=== PATIENT | female | born 1945 | race Caucasian/White ===

== ENCOUNTER 2017-11-29 23:14 | Inpatient (IN) | payer MEDICARE, BC ==
[~2017-11-29] VITALS: Ht 160 cm; Wt 64.7 kg
[2017-11-30] VITALS (9 sets, daily range): BP systolic 109–158; BP diastolic 50–80; PULSE 12–97; TEMP 97.7–98.6
[2017-11-30 00:25] LABS: COLLECTION METHOD CLEAN CATCH
[2017-11-30 00:26] LABS: BASO % 0.2 % (0.0-2.0); EOS % 0.1 % (0-4.0); GRAN # 8.3 (1.4-6.5); GRAN % 88.6 % (42.2-75.2); HEMATOCRIT 41.2 % (37.0-47.0); LYMPH # 0.8 (1.2-3.4); LYMPH % 8.2 % (20.0-51.0); MEAN CELL VOLUME 87 fl (80.0-100.0); MEAN CORPUSCULAR HEMOGLOBIN 29 pg (27.0-31.0); MEAN CORPUSCULAR HGB CONC 34 g/dl (33.0-37.0); MONO # 0.2 (0.1-0.6); MONO % 2.6 % (1.7-9.3); PLATELET COUNT 169 K/mm3 (130-400); RED BLOOD COUNT 4.76 M/mm3 (4.10-5.30); REDCELL DISTRIBUTION WIDTH-CV 12.8 % (11.5-14.5)
[2017-11-30 00:31] LABS: PH 5 (5-8); SQUAMOUS EPITHELIAL 0-2 /hpf; URINE APPEARANCE Clear; URINE BACTERIA Rare /hpf; URINE BILIRUBIN Negative (NEGATIVE); URINE BLOOD 2+ (NEGATIVE); URINE COLOR Yellow; URINE GLUCOSE 3+ (NEGATIVE); URINE KETONE Trace (NEGATIVE); URINE LEUKOCYTE ESTERASE 1+ (NEGATIVE); URINE NITRATE Negative (NEGATIVE); URINE PROTEIN(semi-quant) 1+ (NEGATIVE); URINE UROBILINOGEN Negative (NEGATIVE)
[2017-11-30 00:38] LABS: ALANINE AMINOTRANSFERASE 43 U/L (9-52); ALBUMIN 4.8 gm/dL (3.5-5.0); ALKALINE PHOSPHATASE 130 U/L (50-136); ANION GAP 14 mmol/L (7-16); AST,SGOT 27 U/L (15-37); BILIRUBIN,TOTAL 0.6 mg/dL (0.0-1.0); BLOOD UREA NITROGEN 23 mg/dL (7-17); C-REACTIVE PROTEIN < 0.5 mg/dL (0.0-0.9); CALCIUM 9.9 mg/dL (8.4-10.2); CARBON DIOXIDE 28 mmol/L (22-30); CHLORIDE 96 mmol/L (98-107); CREATININE, serum 1.07 mg/dL (0.52-1.25); GLUCOSE 307 mg/dL (74-106); LIPASE 137 U/L (23-300); POTASSIUM 3.4 mmol/L (3.4-5.0); SODIUM 138 mmol/L (137-145); TOTAL PROTEIN 7.8 gm/dL (6.4-8.2)
[2017-11-30 00:48] LABS: TROPONIN-I < 0.012 ng/mL (0.000-0.034)
[2017-11-30] MEDS ORDERED: AMARYL4 MG PO (03:59)
[2017-11-30] MEDS ORDERED: LIPITOR20 MG PO (03:59)
[2017-11-30] MEDS ORDERED: GLUCOPHAGE1000 MG PO (04:00)
[2017-11-30] MEDS ORDERED: DIOVAN/HCT 12.51 TA1 PO (04:01)
[2017-11-30] MEDS ORDERED: ARIMIDEX1 MG PO (04:01)
[2017-11-30] MEDS ORDERED: ASPIRIN 81M81 MG/TA2 PO (04:02)
[2017-11-30] MEDS ORDERED: VITAMIN D31000 I1 PO (04:02)
[2017-11-30] MEDS ORDERED: EPA FISH OIL1 SGL PO (04:03)
== END 2017-11-30 16:15 | disposition home or self-care (01) | DRG 687 ==
LOC: COL.ER 23:14 → SURG 11-30 02:08
PROVIDERS: Emergency Medicine; Urology
PROC: 0T788DZ Dilation of Bilateral Ureters with Intraluminal Device, Via Natural or Artificial Opening Endoscopic (ICD-10-PCS; principal; 2017-11-30 10:00)
PROC: 0TB38ZX Excision of Right Kidney Pelvis, Via Natural or Artificial Opening Endoscopic, Diagnostic (ICD-10-PCS; 2017-11-30 10:00)
PROC: BT14ZZZ Fluoroscopy of Kidneys, Ureters and Bladder (ICD-10-PCS; 2017-11-30 10:00)
DX: C65.1 Malignant neoplasm of right renal pelvis (principal); N13.30 Unspecified hydronephrosis; Z85.3 Personal history of malignant neoplasm of breast; I10 Essential (primary) hypertension; E11.9 Type 2 diabetes mellitus without complications
CPT/HCPCS: C1769; C2617; J0690; J0696; J1100; J1815; J1885; J2270; J2405; J2550; J2704; J2765; J3010; J7030; Q9967

== ENCOUNTER → 2017-12-24 | Outpatient (CLI) | payer MEDICARE, BC ==
[~2017-12-24] MED LIST: AMARYL4 MG PO; ARIMIDEX1 MG PO; ASPIRIN 81M81 MG/TA2 PO; DIOVAN/HCT 12.51 TA1 PO; EPA FISH OIL1 SGL PO; GLUCOPHAGE1000 MG PO; LIPITOR20 MG PO; VITAMIN D31000 I1 PO
== END ==
LOC: COL.RAD 08:53
DX: M99.88 Other biomechanical lesions of rib cage (principal); Z90.11 Acquired absence of right breast and nipple
CPT/HCPCS: A9503; Q9967

== ENCOUNTER → 2018-01-07 | Outpatient (CLI) | payer MEDICARE, BC ==
[2018-01-07] VITALS (11 sets, daily range): BP systolic 129–171; BP diastolic 73–96; PULSE 87–108
[~2018-01-07] VITALS: Ht 160 cm; Wt 65.3 kg
[~2018-01-07] MED LIST changes: +FORT1000TA PO; +ZYRTEC 10MG10 MG PO
== END ==
LOC: COL.RAD 12:52
DX: C79.51 Secondary malignant neoplasm of bone (principal); C65.1 Malignant neoplasm of right renal pelvis; Z85.3 Personal history of malignant neoplasm of breast; Z90.10 Acquired absence of unspecified breast and nipple
CPT/HCPCS: J3010

== ENCOUNTER 2018-02-04 09:53 | Inpatient (IN) | payer MEDICARE, BC ==
[~2018-02-04] VITALS: Ht 160 cm; Wt 66.4 kg
[2018-02-27] VITALS (10 sets, daily range): BP systolic 108–186; BP diastolic 49–85; PULSE 8–90; TEMP 97.7–98
[2018-02-27] MEDS ORDERED: XGEVA120 MG/1.7 IM (10:56)
[2018-02-27] MEDS ORDERED: FASLODEX250 MG/5 M IM (10:56)
[2018-02-27] MEDS ORDERED: MULTI VITAMINS1 TAB PO (10:57)
[2018-02-28] VITALS: BP 108/63; PULSE 68; TEMP 97.4
[2018-02-28 04:00] VITALS: BP 114/50; PULSE 72; TEMP 97.6
[2018-02-28 07:15] LABS: BASO % 0.1 % (0.0-2.0); GRAN # 8.4 (1.4-6.5); GRAN % 83.7 % (42.2-75.2); HEMOGLOBIN 11.6 g/dl (12.5-16.0); LYMPH % 9.9 % (20.0-51.0); MEAN CELL VOLUME 87 fl (80.0-100.0); MEAN CORPUSCULAR HEMOGLOBIN 29 pg (27.0-31.0); MEAN CORPUSCULAR HGB CONC 34 g/dl (33.0-37.0); MEAN PLATELET VOLUME 10.9 fl (7.4-10.4); MONO # 0.6 (0.1-0.6); MONO % 6.1 % (1.7-9.3); PLATELET COUNT 160 K/mm3 (130-400); RED BLOOD COUNT 3.95 M/mm3 (4.10-5.30); REDCELL DISTRIBUTION WIDTH-CV 13.2 % (11.5-14.5)
[2018-02-28 07:18] LABS: HEMATOCRIT 34.5 % (37.0-47.0)
[2018-02-28 07:28] LABS: CALCIUM 7.8 mg/dL (8.4-10.2); CREATININE, serum 1.17 mg/dL (0.52-1.25); MAGNESIUM 1.5 mg/dL (1.6-2.3); PHOSPHOROUS 3.1 mg/dL (2.5-4.5); POTASSIUM 4.1 mmol/L (3.4-5.0)
[2018-02-28 08:54] VITALS: BP 125/63; PULSE 76; TEMP 97.6
[2018-02-28 12:01] VITALS: BP 112/33; PULSE 71; TEMP 98.4
[2018-02-28 15:41] VITALS: BP 117/54; PULSE 65; TEMP 98.3
[2018-02-28 19:31] VITALS: BP 133/99; PULSE 91; TEMP 98.3
[2018-03-01 00:51] VITALS: BP 130/98; PULSE 90; TEMP 98
[2018-03-01 04:43] VITALS: BP 120/68; PULSE 67; TEMP 98.4
[2018-03-01 07:33] LABS: HEMOGLOBIN 11.2 g/dl (12.5-16.0); MEAN CELL VOLUME 87 fl (80.0-100.0); MEAN CORPUSCULAR HEMOGLOBIN 29 pg (27.0-31.0); MEAN CORPUSCULAR HGB CONC 34 g/dl (33.0-37.0); MEAN PLATELET VOLUME 11.3 fl (7.4-10.4); PLATELET COUNT 140 K/mm3 (130-400); RED BLOOD COUNT 3.83 M/mm3 (4.10-5.30); REDCELL DISTRIBUTION WIDTH-CV 13.7 % (11.5-14.5)
[2018-03-01 07:48] LABS: CALCIUM 8.2 mg/dL (8.4-10.2); CREATININE, serum 1.24 mg/dL (0.52-1.25); POTASSIUM 4.3 mmol/L (3.4-5.0)
[2018-03-01 07:57] LABS: HEMATOCRIT 33.2 % (37.0-47.0)
[2018-03-01 08:55] VITALS: BP 136/52; PULSE 66; TEMP 98.3
[2018-03-01] MEDS ORDERED: LEVAQUIN 2250 MG/TAB PO (09:27)
[2018-03-01] MEDS ORDERED: PERCOCET 325 MG1 TA2 PO (09:27)
== END 2018-03-01 11:17 | disposition home or self-care (01) | DRG 657 ==
LOC: INPTSU 02-27 09:35 → SURG 02-27 11:30
PROVIDERS: Urology
PROC: 0TT64ZZ Resection of Right Ureter, Percutaneous Endoscopic Approach (ICD-10-PCS; 2018-02-27)
PROC: 07TD4ZZ Resection of Aortic Lymphatic, Percutaneous Endoscopic Approach (ICD-10-PCS; 2018-02-27)
PROC: 8E0W4CZ Robotic Assisted Procedure of Trunk Region, Percutaneous Endoscopic Approach (ICD-10-PCS; 2018-02-27)
PROC: 0TT04ZZ Resection of Right Kidney, Percutaneous Endoscopic Approach (ICD-10-PCS; principal; 2018-02-27 11:30)
DX: C65.1 Malignant neoplasm of right renal pelvis (principal); C79.51 Secondary malignant neoplasm of bone; E11.9 Type 2 diabetes mellitus without complications; E78.5 Hyperlipidemia, unspecified; I10 Essential (primary) hypertension; Z85.3 Personal history of malignant neoplasm of breast; Z92.21 Personal history of antineoplastic chemotherapy
CPT/HCPCS: A4314; A9284; C1713; J0690; J1100; J1815; J2250; J2405; J2704; J2795; J3010; J7030; J7050; J7120

== ENCOUNTER → 2018-03-07 | Outpatient (CLI) | payer MEDICARE, BC ==
[~2018-03-07] MED LIST changes: +FASLODEX250 MG/5 M IM; +LEVAQUIN 2250 MG/TAB PO; +MULTI VITAMINS1 TAB PO; +PERCOCET 325 MG1 TA2 PO; +XGEVA120 MG/1.7 IM
== END ==
LOC: COL.RAD 08:34
DX: C65.1 Malignant neoplasm of right renal pelvis (principal); R32 Unspecified urinary incontinence; Z98.890 Other specified postprocedural states; Z96.0 Presence of urogenital implants
CPT/HCPCS: Q9967

== ENCOUNTER → 2018-06-17 | Outpatient (CLI) | payer MEDICARE, BC | LOC: COL.RAD 08:54 | DX: C50.411 Malignant neoplasm of upper-outer quadrant of right female breast (principal); M89.9 Disorder of bone, unspecified; Z98.890 Other specified postprocedural states; Z85.53 Personal history of malignant neoplasm of renal pelvis; Z90.11 Acquired absence of right breast and nipple; Z90.5 Acquired absence of kidney | CPT/HCPCS: A9503; Q9967 ==

== ENCOUNTER 2018-06-21 06:29 | Day surgery (SDC) | payer MEDICARE, BC ==
[~2018-06-21] VITALS: Ht 160 cm; Wt 69.1 kg
[2018-06-21 07:17] VITALS: BP 171/71; PULSE 79; TEMP 97.9
[2018-06-21] MEDS ORDERED: IBRANCE125 MG PO (07:30)
[2018-06-21] MEDS ORDERED: ASPIRIN E.C. 8181 MG PO (07:31)
[2018-06-21] MEDS ORDERED: ZYRTEC 10MG10 MG PO (07:32)
[2018-06-21] MEDS ORDERED: DIOVAN/HCT 12.51 TA1 PO (07:33)
[2018-06-21] MEDS ORDERED: FORT1000TA PO (07:33)
[2018-06-21] MEDS ORDERED: XGEVA120 MG/1.7 INJ (07:34)
[2018-06-21] MEDS ORDERED: FASLODEX250 MG/5 M IM (07:35)
[2018-06-21 09:55] VITALS: BP 146/70; PULSE 93; TEMP 97.3
[2018-06-21 10:10] VITALS: BP 137/60; PULSE 81
[2018-06-21] MEDS ORDERED: PYRIDIUM 100MG100 MG PO (10:16)
[2018-06-21] MEDS ORDERED: SENNA8.6 MG PO (10:16)
[2018-06-21] MEDS ORDERED: LEVAQUIN 5500 MG/TA1 PO (10:17)
[2018-06-21 10:25] VITALS: BP 100/72; PULSE 88; TEMP 97.2
== END 2018-06-21 11:49 | disposition home or self-care (01) ==
LOC: SDCO 06:29
DX: C67.8 Malignant neoplasm of overlapping sites of bladder (principal); C79.51 Secondary malignant neoplasm of bone; Z85.3 Personal history of malignant neoplasm of breast; Z85.53 Personal history of malignant neoplasm of renal pelvis; Z92.21 Personal history of antineoplastic chemotherapy; Z92.3 Personal history of irradiation; E11.9 Type 2 diabetes mellitus without complications; Z79.84 Long term (current) use of oral hypoglycemic drugs; Z90.5 Acquired absence of kidney; Z77.22 Contact with and (suspected) exposure to environmental tobacco smoke (acute) (chronic)
CPT/HCPCS: J0690; J2405; J2704; J3010; J7120; Q9967

== ENCOUNTER → 2018-09-13 | Outpatient (CLI) | payer MEDICARE, BC ==
[~2018-09-13] MED LIST changes: +ASPIRIN E.C. 8181 MG PO; +IBRANCE125 MG PO; +LEVAQUIN 5500 MG/TA1 PO; +PYRIDIUM 100MG100 MG PO; +SENNA8.6 MG PO; +XGEVA120 MG/1.7 INJ
== END ==
LOC: COL.RAD 09-12 10:00
DX: C50.411 Malignant neoplasm of upper-outer quadrant of right female breast (principal); C79.51 Secondary malignant neoplasm of bone; C67.9 Malignant neoplasm of bladder, unspecified; M89.9 Disorder of bone, unspecified; R91.1 Solitary pulmonary nodule; Z90.5 Acquired absence of kidney; Z90.11 Acquired absence of right breast and nipple
CPT/HCPCS: Q9967

== ENCOUNTER 2018-10-03 11:49 | Day surgery (SDC) | payer MEDICARE, BC ==
[2018-10-03] VITALS (7 sets, daily range): BP systolic 149–185; BP diastolic 67–82; PULSE 66–104; TEMP 97.8–97.9
[~2018-10-03] VITALS: Ht 160 cm; Wt 69.1 kg
[2018-10-03] MEDS ORDERED: AMARYL1 MG PO (12:58)
--- NOTE | 2018-10-03 15:25 | NUR ---
Patient returns to room 6 per cart and is awake and alert. Temp 98.4 and room air sats 99%. IV fluids infusing and call light in reach. Spouse in room. Taking sips of water.
--- NOTE | 2018-10-03 15:40 | NUR ---
[facility] followed. Spouse returns to waiting room.
--- NOTE | 2018-10-03 15:55 | NUR ---
Room air sats 98%. Taking sips of water.
--- NOTE | 2018-10-03 15:55 | NUR ---
Pt has signed consent for mitomycin administration with OR procedure. Pt education done upon return to [facility] room and questions invited and answered. Contreras cath drained of light pink tinged urine and then clamped. Mitomycin instilled into bladder using PPE and following protocal. Pt instructed to turn q15 min. Report to Hazel LUNDBERG providing care for pt at this time.
--- NOTE | 2018-10-03 16:10 | NUR ---
Room air sats 98%. Patient repositioning self every fifteen minutes and is tolerating having catheter clamped.
--- NOTE | 2018-10-03 16:25 | NUR ---
Continues to reposition self every 15 minutes.
--- NOTE | 2018-10-03 16:50 | NUR ---
Contreras catheter discontinued and chemo precautions maintained.
--- NOTE | 2018-10-03 16:57 | NUR ---
Mitomycin drained from bladder upon completion of 1 hour dwell time. Urine appears slightly pink with rare very small clots noted. Contreras catheter was dc'd without difficulty after balloon emptied of 10ml. Pt tolerated procedure well. She was provided with mitomycin pt instructions from [facility] and home care instructions were reviewed. Chemotherapy precautions for 24 hours post cath removal. Good handwashing with soap and water. Taking po fluids well during my time with her. Nikole care completed after catheter removed. Chemotherapy precautions were observed and chemowaste was disposed of per protocal.
--- NOTE | 2018-10-03 17:10 | NUR ---
Patient eating muffin and drinking milk. Offers no complaints of pain or nausea.
--- NOTE | 2018-10-03 17:40 | NUR ---
Patient has voided x2 of pink tinged urine. Provided handout by Kristin Saenz RN on precautions post Mitomycin instillation.
--- NOTE | 2018-10-03 17:47 | NUR ---
Patient dismissed to home per private vehicle driven by spouse and with dismissal instructions in hand. Taken to car by Kristin BROCK.
== END 2018-10-03 17:47 | disposition home or self-care (01) ==
LOC: SDCO 11:49
DX: C67.8 Malignant neoplasm of overlapping sites of bladder (principal); E78.5 Hyperlipidemia, unspecified; I10 Essential (primary) hypertension; R80.9 Proteinuria, unspecified; J30.2 Other seasonal allergic rhinitis; E11.9 Type 2 diabetes mellitus without complications; Z85.53 Personal history of malignant neoplasm of renal pelvis; Z90.10 Acquired absence of unspecified breast and nipple; Z85.3 Personal history of malignant neoplasm of breast; Z90.5 Acquired absence of kidney; Z79.82 Long term (current) use of aspirin; Z79.84 Long term (current) use of oral hypoglycemic drugs; Z80.3 Family history of malignant neoplasm of breast; Z82.49 Family history of ischemic heart disease and other diseases of the circulatory system; Z80.1 Family history of malignant neoplasm of trachea, bronchus and lung; Z82.3 Family history of stroke; Z80.8 Family history of malignant neoplasm of other organs or systems
CPT/HCPCS: C1769; C2617; J0690; J1100; J2405; J2704; J3010; J7030; J9280; Q9967

== ENCOUNTER 2018-11-06 08:56 | Day surgery (SDC) | payer MEDICARE, BC ==
[2018-11-06] VITALS (10 sets, daily range): BP systolic 113–157; BP diastolic 55–85; PULSE 25–99; TEMP 97.9–98.6
[~2018-11-06] VITALS: Ht 160 cm; Wt 68.7 kg
[~2018-11-06 08:56] MED LIST changes: +AMARYL1 MG PO; +HYZAAR 12.5 MG-1 TAB PO
[2018-11-06] MEDS ORDERED: GLUCOPHAGE1000 MG PO (10:00)
[2018-11-06] MEDS ORDERED: ASPIRIN E.C. 8181 MG PO (10:05)
--- NOTE | 2018-11-06 14:27 | NUR ---
PT TO ROOM 324 PER CART WITH JANKI LUNDBERG PACU GIVING REPORT @ 1939. PT IS A/O X3 LUNGS CLEAR BOWEL SOUNDS PRESENT. [place] TO DD WITH CLEAR REDISH PINK FLUID IN BAG. PT DENIES PAIN OR NEEDS.
--- NOTE | 2018-11-06 21:00 | NUR ---
Assessment completed. Patient is A&O x 4. VSS. Tele maintained, HR in the 70's. Denies any pain at this time. Contreras catheter to DD with reddish clear urine draining. Denies any feeling of fullness or bladder spasms. Tolerating diet with no c/o nausea. IVF infusing per orders. BLE scds applied. Patient up with assist x 1 first step was unsteady after that patient was able to ambulate with a steady gait. Ambulated two laps around the surgical floor. Denied any dizziness. is at bedside. No concerns or needs at this time, call light is within reach.
[2018-11-07] VITALS (7 sets, daily range): BP systolic 100–147; BP diastolic 51–63; PULSE 68–96; TEMP 97.4–100.1
--- NOTE | 2018-11-07 00:55 | NUR ---
Patient continues to rest well, denies any pain. Contreras catheter remains to DD with pinkish urine draining instead of reddish urine. remains at bedside. Deneis any concerns or needs.
--- NOTE | 2018-11-07 05:09 | NUR ---
Patient has rested well through the night. VSS. Continues to deny any pain or feeling of fullness. Contreras catheter to DD with adequate urine output, urine has been dark reddish at times and then clear pinkish color. IV to INT with tolerating diet. remains at bedside. Denies any concerns or needs, call light is within reach.
--- NOTE | 2018-11-07 13:55 | NUR ---
SW met with patient to discuss discharge planning. Patient lives independently at home with her . Her PCP is Dr Roxanna Lee and she obtains prescriptions from [facility] in [place]. Patient reports she does not use any medical equipment or home health services. She does not have a DPOA for healthcare decisions and she is not interested in that at this time. SW does not anticipate any needs upon discharge.
--- NOTE | 2018-11-07 18:38 | NUR ---
Patient sitting up in the chair. I ambulated in the hallway with patient this evening, she was a little unstady on her feet. Overall she just seems like she does not feel that well. She is having a low grade temp. Dr. Bird notifed & urine culture send to lab & then IV levaquin started per orders. Contreras remains to DD with tea colored output & sediment present. Dinner ordered but minimal appetite. SHe did have emesis earlier in the day. Will report off to night nurse
--- NOTE | 2018-11-07 20:00 | NUR ---
Patient in chair watching television. Alert and oriented x 3. Shift assessment complete. Contreras to dependent drainage with clear elijah urein present. Patient ambulated >75 feet, with stand by assist. Patient was a little unsteady on her feet. Denies pain or further needs at this time.
[2018-11-08 05:01] VITALS: BP 110/52; PULSE 91; TEMP 98.6
--- NOTE | 2018-11-08 05:42 | NUR ---
Patient has rested well through the night. Minimal needs. Continues to deny pain. Contreras to dependent drainage with clear yellow urine present in bag. Denies further needs at this time. Will report off to day shift.
[2018-11-08 06:38] LABS: CREATININE, serum 1.54 mg/dL (0.52-1.25)
[2018-11-08 08:33] VITALS: BP 106/59; PULSE 95; TEMP 97.9
--- NOTE | 2018-11-08 08:48 | NUR ---
Report from TOÑO Delvalle. Pt has [employer] [employer] student nurse, Steph, to provide total cares until 1330. Pt was awakened during bedside report, laying on right side, dill to dependent drainage with clear yellow urine. Pt denies pain, enc to order breakfast, menu provided on tray along with telephone and call light. Glasses on tray, pt denies wearing hearing aides/dentures.
--- NOTE | 2018-11-08 10:59 | NUR ---
Assessment completed, pt requesting leg bag for travel, will provide with extra statlock. visiting in room. IV removed from Left FA by student nurse, bandaid in place. Pt verbalizes knowledge of dill cares, reviewed importance of jesus cares and using alcohol wipes to drainage port before and after emptying bag.
--- NOTE | 2018-11-08 12:12 | NUR ---
Printed dill care instructions, provided leg bag, extra stat locks and catheter caps, ejsus bottle for sanitizing catheter bags, and provided supervision/cues to pt as she changed her overnight bag to leg bag per her request prior to discharge. Printed Patient Health Summary, Discharge Summary, and Home med list and reviewed with pt and . Copy of levaquin prescription to chart, original to patient, stressed importance of taking all of antibiotics and side effects to report to doctor. Reviewed follow up appointment. Belongings gathered by staff and patient/spouse. This nurse rinsed overnight bag with bleachwater and capped, included in separate belonging bag. Pt and spouse denied any questions. Pt walked out with student nurseSteph for ride home.
--- NOTE | 2018-11-08 12:33 | NUR ---
First visit from the game protector. No needs right now.
== END 2018-11-08 12:10 | disposition home or self-care (01) ==
LOC: SDCO 08:56 → SURG 13:45 → SDCO 11-08 12:10
PROVIDERS: Urology
DX: C67.8 Malignant neoplasm of overlapping sites of bladder (principal); R82.8 Abnormal findings on cytological and histological examination of urine; I12.9 Hypertensive chronic kidney disease with stage 1 through stage 4 chronic kidney disease, or unspecified chronic kidney disease; E78.5 Hyperlipidemia, unspecified; E11.22 Type 2 diabetes mellitus with diabetic chronic kidney disease; N18.4 Chronic kidney disease, stage 4 (severe); M85.80 Other specified disorders of bone density and structure, unspecified site; R80.9 Proteinuria, unspecified; Z79.82 Long term (current) use of aspirin; Z85.53 Personal history of malignant neoplasm of renal pelvis; Z90.10 Acquired absence of unspecified breast and nipple; Z92.21 Personal history of antineoplastic chemotherapy; Z85.3 Personal history of malignant neoplasm of breast; Z79.84 Long term (current) use of oral hypoglycemic drugs; Z77.22 Contact with and (suspected) exposure to environmental tobacco smoke (acute) (chronic); Z80.8 Family history of malignant neoplasm of other organs or systems; Z80.1 Family history of malignant neoplasm of trachea, bronchus and lung; Z82.3 Family history of stroke; Z80.3 Family history of malignant neoplasm of breast; Z83.3 Family history of diabetes mellitus; Z82.49 Family history of ischemic heart disease and other diseases of the circulatory system; Z80.0 Family history of malignant neoplasm of digestive organs
CPT/HCPCS: OP; A9284; C1769; C2617; J0690; J1956; J2405; J2704; J3010; J7030; J7120; Q9967

== ENCOUNTER → 2018-12-03 | Outpatient (CLI) | payer MEDICARE, BC | LOC: COL.RAD 09:00 | DX: C50.919 Malignant neoplasm of unspecified site of unspecified female breast (principal); C79.51 Secondary malignant neoplasm of bone; R91.1 Solitary pulmonary nodule; Z90.11 Acquired absence of right breast and nipple; Z90.5 Acquired absence of kidney | CPT/HCPCS: A9503 ==

== ENCOUNTER → 2019-02-05 | Outpatient (CLI) | payer MEDICARE, BC | LOC: MC.RAD 14:51 | DX: Z12.31 Encounter for screening mammogram for malignant neoplasm of breast (principal); Z90.11 Acquired absence of right breast and nipple ==

== ENCOUNTER → 2019-03-26 | Outpatient (CLI) | payer MEDICARE, BC | LOC: COL.RAD 08:45 | DX: C50.411 Malignant neoplasm of upper-outer quadrant of right female breast (principal); C65.9 Malignant neoplasm of unspecified renal pelvis; C79.51 Secondary malignant neoplasm of bone; E11.9 Type 2 diabetes mellitus without complications; Z90.11 Acquired absence of right breast and nipple; Z90.5 Acquired absence of kidney | CPT/HCPCS: Q9967 ==

== ENCOUNTER → 2019-07-15 | Outpatient (CLI) | payer MEDICARE, BC | LOC: COL.RAD 08:53 | DX: C50.411 Malignant neoplasm of upper-outer quadrant of right female breast (principal); E11.9 Type 2 diabetes mellitus without complications; Z90.11 Acquired absence of right breast and nipple; C79.51 Secondary malignant neoplasm of bone | CPT/HCPCS: A9503; Q9967 ==

== ENCOUNTER → 2020-02-27 | Outpatient (CLI) | payer MEDICARE, BC | LOC: COL.RAD 08:13 | DX: C50.411 Malignant neoplasm of upper-outer quadrant of right female breast (principal); D41.11 Neoplasm of uncertain behavior of right renal pelvis; E11.9 Type 2 diabetes mellitus without complications; M89.9 Disorder of bone, unspecified; Z90.5 Acquired absence of kidney | CPT/HCPCS: A9503; Q9967 ==

== ENCOUNTER → 2020-06-15 | Outpatient (CLI) | payer MEDICARE, BC | LOC: MC.RAD 09:20 | DX: Z12.31 Encounter for screening mammogram for malignant neoplasm of breast (principal); Z90.11 Acquired absence of right breast and nipple; N63.20 Unspecified lump in the left breast, unspecified quadrant ==

== ENCOUNTER → 2020-10-05 | Outpatient (CLI) | payer MEDICARE, BC ==
[2020-10-05 10:53] LABS: ALBUMIN 4.7 gm/dL (3.5-5.0); CALCIUM 9.9 mg/dL (8.4-10.2); CREATININE, serum 1.55 (0.52-1.25); POTASSIUM 3.6 mmol/L (3.4-5.0); TOTAL PROTEIN 8.1 gm/dL (6.4-8.2)
== END ==
LOC: COL.RAD 09:48
PROVIDERS: Internal Medicine
DX: C50.411 Malignant neoplasm of upper-outer quadrant of right female breast (principal); C65.1 Malignant neoplasm of right renal pelvis; C79.51 Secondary malignant neoplasm of bone; Z90.11 Acquired absence of right breast and nipple; M89.9 Disorder of bone, unspecified; Z90.5 Acquired absence of kidney
CPT/HCPCS: Q9967

== ENCOUNTER → 2021-01-25 | Outpatient (CLI) | payer MEDICARE, BC | LOC: COL.RAD 09:09 | DX: C50.919 Malignant neoplasm of unspecified site of unspecified female breast (principal); C79.51 Secondary malignant neoplasm of bone; Z90.5 Acquired absence of kidney; Z90.11 Acquired absence of right breast and nipple | CPT/HCPCS: A9503; Q9967 ==

== ENCOUNTER → 2021-05-17 | Outpatient (CLI) | payer MEDICARE, BC | LOC: COL.RAD 08:22 | DX: Z01.812 Encounter for preprocedural laboratory examination (principal); C65.1 Malignant neoplasm of right renal pelvis; C50.411 Malignant neoplasm of upper-outer quadrant of right female breast; C79.51 Secondary malignant neoplasm of bone; Z90.11 Acquired absence of right breast and nipple; Z90.5 Acquired absence of kidney; E11.9 Type 2 diabetes mellitus without complications | CPT/HCPCS: Q9967 ==

== ENCOUNTER → 2021-09-06 | Outpatient (CLI) | payer MEDICARE, BC | LOC: COL.RAD 08:47 | DX: C50.411 Malignant neoplasm of upper-outer quadrant of right female breast (principal); E11.9 Type 2 diabetes mellitus without complications | CPT/HCPCS: A9503; Q9967 ==

== ENCOUNTER → 2022-01-11 | Outpatient (CLI) | payer MEDICARE, BC | LOC: COL.RAD 10:55 | DX: C50.411 Malignant neoplasm of upper-outer quadrant of right female breast (principal); C79.51 Secondary malignant neoplasm of bone; Z90.5 Acquired absence of kidney; Z90.11 Acquired absence of right breast and nipple; Z85.53 Personal history of malignant neoplasm of renal pelvis | CPT/HCPCS: Q9967 ==

== ENCOUNTER → 2022-06-13 | Outpatient (CLI) | payer MEDICARE, BC | LOC: COL.RAD 08:40 | DX: C50.919 Malignant neoplasm of unspecified site of unspecified female breast (principal); C79.51 Secondary malignant neoplasm of bone; Z90.5 Acquired absence of kidney; Z90.11 Acquired absence of right breast and nipple | CPT/HCPCS: A9503 ==

== ENCOUNTER → 2023-10-31 | Outpatient (CLI) | payer MEDICARE, BC | LOC: COL.RAD 07:51 | DX: C50.411 Malignant neoplasm of upper-outer quadrant of right female breast (principal); C65.1 Malignant neoplasm of right renal pelvis; C79.51 Secondary malignant neoplasm of bone ==

== ENCOUNTER 2023-12-18 20:27 | Emergency (ER) | payer MEDICARE, BC ==
[~2023-12-18] VITALS: Ht 160 cm; Wt 55.9 kg
[2023-12-18 20:46] VITALS: TEMP 98.2
[2023-12-18 21:21] LABS: COLLECTION METHOD CLEAN CATCH
[2023-12-18] MEDS ORDERED: Morphine 4 MG/ML VIAL IV ONE (21:30)
[2023-12-18] MEDS ORDERED: Ondansetron 4 MG/2 ML VIAL IV ONE (21:30)
[2023-12-18] MEDS ORDERED: NS 1,000 ML IV ONE (21:30)
[2023-12-18 21:31] LABS: PH 5.5 (5.0-8.5); URINE APPEARANCE CLOUDY (CLEAR/HAZY); URINE BLOOD NEGATIVE (NEGATIVE); URINE COLOR Dark Yellow (YELLOW); URINE GLUCOSE 2+ (NEGATIVE); URINE KETONE TRACE (NEGATIVE); URINE NITRATE NEGATIVE (NEGATIVE); URINE PROTEIN(semi-quant) 1+ (NEGATIVE)
[2023-12-18 21:43] LABS: ALBUMIN 4.5 gm/dL (3.4-4.8); C-REACTIVE PROTEIN 0.25 mg/dL (0.00-0.50); CALCIUM 11.6 mg/dL (8.4-10.2); CREATININE, serum 1.65 mg/dL (0.57-1.11); POTASSIUM 4.3 mmol/L (3.5-4.5); TOTAL PROTEIN 7.9 gm/dL (6.2-8.1)
[2023-12-18 21:56] LABS: BILIRUBIN,TOTAL 0.8 mg/dL (0.2-1.2)
[2023-12-18 22:15] LABS: HEMOGLOBIN 11.4 g/dl (12.5-16.0); MEAN CELL VOLUME 105 fl (80.0-100.0); MEAN CORPUSCULAR HEMOGLOBIN 38 pg (27-31); MEAN CORPUSCULAR HGB CONC 36 g/dl (33.0-37.0); MEAN PLATELET VOLUME 11.8 fl (7.4-10.4); PLATELET COUNT 102 K/mm3 (130-400); RED BLOOD COUNT 3.01 M/mm3 (4.10-5.30); REDCELL DISTRIBUTION WIDTH-CV 13.7 % (11.5-14.5)
[2023-12-18 22:36] LABS: HEMATOCRIT 31.5 % (37.0-47.0)
[2023-12-18 23:01] LABS: MUCOUS PRESENT (NOT PRESENT); SQUAMOUS EPITHELIAL 0-2 /hpf (0-10); URINE CALCIUM OXALATE CRYSTAL PRESENT (NOT PRESENT); URINE RBC 0-2 /hpf (0-2); URINE WBC 0-2 /hpf (0-2)
[2023-12-18 23:02] LABS: URINE BACTERIA OCCASIONAL /hpf (NONE SEEN)
[2023-12-18] MEDS ORDERED: Iohexol 300 - 100 ML VIAL IV ONE (23:02)
[2023-12-18] MEDS ORDERED: NS 50 ML IV ONE (23:03)
[2023-12-18 23:16] LABS: BAND 6 % (0-10); LYMPHOCYTE 41 % (20.0-51.0); NEUTROPHILS 41 % (42.0-75.2); PLATELET ESTIMATE NORMAL (NORMAL)
[2023-12-19] MEDS ORDERED: fentaNYL 12 MCG 72 HR PATCH TD ONE (01:00)
[2023-12-19 01:05] VITALS: BP 126/78; PULSE 88
== END 2023-12-19 01:30 | disposition home or self-care (01) ==
LOC: COL.ER 20:27
PROVIDERS: Internal Medicine; Nurse Practitioner
DX: R10.31 Right lower quadrant pain (principal); M54.50 Low back pain, unspecified; E86.0 Dehydration; C64.9 Malignant neoplasm of unspecified kidney, except renal pelvis; C79.11 Secondary malignant neoplasm of bladder; C79.51 Secondary malignant neoplasm of bone; Z79.899 Other long term (current) drug therapy; Z90.5 Acquired absence of kidney
CPT/HCPCS: J2270; J2405; J7030; Q9967